=== PATIENT | male | born 1985 | race Two or more races ===

== ENCOUNTER 2024-04-03 14:38 | Emergency (ER) | payer OTHER, SELFPAY ==
[2024-04-03 14:54] VITALS: BP 145/90
--- NOTE | 2024-04-03 14:55 | ED.MUSCINJ ---
HPI-Injury
General
Chief Complaint: Musculo-Skeletal Complaint
Source: patient
Exam Limitations: none
Time Seen by Provider: 04/03/24 15:30
History of Present Illness-Injury
Initial Injury comments:
39-year-old male presents complaining of right shoulder pain as mentioned above in triage note. The pain is made worse with motion. He is having trouble lifting above his head. No known injury. No other complaints at this time
ED Provider Triage
-
Patient seen by provider in Triage?: Seen in Triage
Attestation: A medical screening examination has been initiated by a qualified medical provider. Based on the assessment performed at this time, it has been determined that an emergent medical condition may exist and the patient has been informed
that further medical evaluation and possible additional diagnostic testing may be needed.
HPI: 39-year-old [id number] male presents with atraumatic right shoulder pain worsening over the past 4 to 5 days. He denies any trauma fall or lifting. Hurts to move. No deformities noted on exam. X-rays right shoulder pending
GENERAL: Alert , in no apparent distress
EYE: No visual abnormalities.
NECK: Trachea midline
ENT: No visible abnormalities.
LUNGS: No acute respiratory distress
NEUROLOGICAL: Alert and oriented
SKIN: Skin intact. No visible changes.
MUSCULOSKELETAL: Moving extremities normally
PSYCH: Normal and appropriate interaction.
This is a medical evaluation conducted in person to initiate diagnostic evaluation and provide initial therapeutics. Please see further documentation by the treating clinician.
Phy Exam
Physical Exam
Physical Exam:
General: Well-appearing male no acute respiratory distress
HEENT: Normocephalic atraumatic
Musculoskeletal exam: The patient is tender over the anterolateral aspect of the right shoulder. He has decreased passive and active range of motion. He has increased pain with rotator cuff testing.
Skin is intact
Injury Course
Orders/Labs/Results
Orders:
Orders
04/03/24 14:54
CR Shoulder - Right Min 2 View Urgent
Comment:
Reason For Exam: pain
04/03/24 15:35
Sling Right-Treatment ONCE
MDM/Problems Addressed
Differential Diagnosis Includes:
Right shoulder pain. Consider tendinitis versus fracture versus dislocation
I personally visualized x-rays of the right shoulder which demonstrate calcific tendinitis. Recommend anti-inflammatories and a rest in a sling. He was referred to orthopedics stable for discharge
*Critical Care Note
Total Time (30-74mins, 75-104mins- exclusive of procedures): Not Applicable
ED Attending Note
-
Portions of this chart may have been created with voice recognition software.� Occasional wrong word or��sound alike� substitutions may have occurred due to the inherent limitations of voice recognition software.
Discharge Plan
Departure
Patient Disposition: Home (Routine Discharge)
Date of Disposition: 04/03/24
Time of Disposition: 15:37
Patient with high blood pressure during this ER visit?: No
Discharge Problem:
Calcific tendinitis
Instructions: Muscle and Bone Pain (DC)
Prescriptions:
New
prednisone 20 mg tablet
40 mg PO DAILY 5 Days Qty: 10 0RF
Referrals:
Merrill Menard MD [Active] -
Activity Restrictions/Additional Instructions:
Rest. Use sling for comfort. Take anti-inflammatories. Follow-up with orthopedics for further evaluation
Interventions
Interventions:
*Risk Screen - Suicide Last Done: 04/03/24 14:54
*General Assessment Last Done: 04/03/24 14:54
*Neglect/Abuse Screening Last Done: 04/03/24 14:54
*ED COVID-19 Vaccine History Last Done: 04/03/24 14:54
Discharge Date and Time
Print Language: HEBREW
== END 2024-04-03 16:22 | disposition home or self-care (01) ==
LOC: EMR 14:38
PROVIDERS: EMERGENCY PHYSICIAN Emergency Medicine; FAMILY PHYSICIAN Nurse Practitioner Family
DX: M75.31 Calcific tendinitis of right shoulder (principal)
CPT/HCPCS: 99283; 73030